=== PATIENT | female | born 1985 | race Caucasian/White ===

== ENCOUNTER 2017-04-23 12:41 | Emergency (ER) | payer BC ==
[2017-04-23] MEDS ORDERED: ONDANSETRON 4 MG ODT TABLET SL ONE (13:07)
[2017-04-23] MEDS ORDERED: IBUPROFEN 600 MG TABLET PO ONE (13:07)
--- NOTE | 2017-04-23 13:07 | Emergency Department Record ---
History of Present Illness - General Chief Complaint: Abdominal Pain Stated Complaint: ABDOMINAL PAIN,VOMITTING Time Seen by Provider: 04/23/17 12:53 Source: Patient Mode of Arrival: Ambulatory Limitations: No limitations - History of Present Illness Initial Comments: 32 yo female presents with UTI like symptoms since last . She has had frequency and discomfort with urination. She tried to increase her fluids. She has continued to have the symptoms but now with some discomfort in her back as well. No fever. She has had some nausea. No history of renal stones. Early this morning she had some nausea and vomited twice. Starting at 5pm yesterday she had some LLQ ache as well. No fever. No hematuria. Her OB is Dr Dodd. Onset/Timin -: Days(s) (5) Location: LUQ, LLQ Radiation: Back Severity: Moderate Quality: Dull, Sharp Consistency: Constant, Intermittent Improves With: Nothing Worsens With: Nothing Associated Symptoms: Denies other symptoms - Related Data Patient : No Previous Rx's Medication Instructions Recorded Cephalexin [Keflex] 500 mg PO QID #40 cap 04/23/17 Hydrocodone/Acetaminophen [[place] 1 each PO Q8H #10 tablet 04/23/17 5-325 Tablet] Metronidazole [Flagyl] 500 mg PO BID #14 tablet 04/23/17 Allergies Allergy/AdvReac Type Severity Reaction Status Date / Time hydrogen peroxide Allergy Severe BLISTERS Unverified 08/05/15 14:46 adhesive Allergy Mild HIVES Unverified 08/05/15 14:46 Travel Screening - Travel/Exposure Within Last 30 Days Have you traveled within the last 30 days?: No Review of Systems Constitutional: Denies: Chills, Fever, Malaise, Weakness Eyes: Denies: Eye discharge, Eye pain, Photophobia, Vision change ENT: Denies: Congestion, Throat pain Respiratory: Denies: Cough, Dyspnea, Hemoptysis, Stridor, Wheezes Cardiovascular: Denies: Chest pain, Palpitations, Syncope Endocrine: Denies: Fatigue, Polydipsia, Polyuria Gastrointestinal: Reports: As per HPI, Abdominal pain, Nausea. Denies: Diarrhea Genitourinary: Reports: Dysuria, Frequency. Denies: Hematuria Musculoskeletal: Reports: As per HPI, Back pain. Denies: Arthralgia Skin: Denies: Bruising, Change in color, Rash Neurological: Denies: Headache, Numbness, Vertigo, Weakness Psychiatric: Denies: Anxiety Hematological/Lymphatic: Denies: Blood Clots, Easy bleeding, Easy bruising, Swollen glands Past Medical History - SOCIAL HISTORY Smoking Status: Current every day smoker Alcohol Use: Occasional Drug Use: None - RESPIRATORY Hx Respiratory Disorders: No - CARDIOVASCULAR Hx Cardio Disorders: No - NEURO Hx Neuro Disorders: No - GI Hx GI Disorders: No - Hx Genitourinary Disorders: No - ENDOCRINE Hx Endocrine Disorders: No - MUSCULOSKELETAL Hx Musculoskeletal Disorders: No - PSYCH Hx Psych Problems: No Comment:: ADHD - HEMATOLOGY/ONCOLOGY Hx Hematology/Oncology Disorders: No Family Medical History Any Significant Family History?: No Physical Exam - General General Appearance: Alert, Oriented x3, Cooperative, No acute distress Limitations: No limitations - Head Head exam: Atraumatic, Normal inspection - Eye Eye exam: Normal appearance, PERRL. negative: Conjunctival injection, Scleral icterus - ENT ENT exam: Normal exam, Mucous membranes moist Ear exam: Normal external inspection Nasal Exam: Normal inspection Mouth exam: Normal external inspection - Neck Neck exam: Normal inspection, Full ROM. negative: Tenderness - Respiratory Respiratory exam: Normal lung sounds bilaterally. negative: Respiratory distress - Cardiovascular Cardiovascular Exam: Regular rate, Normal rhythm, Normal heart sounds - GI/Abdominal GI/Abdominal exam: Soft - Rectal Rectal exam: Deferred - exam: Adnexal tenderness (L), Normal external exam, Vaginal bleeding. negative: Abnormal external exam, Adnexal mass (L), Adnexal mass (R), Adnexal tenderness (R), Cervical discharge, cervical motion tenderness, Enlarged uterus , Normal speculum exam, Vaginal discharge, Vaginal erythema - Extremities Extremities exam: Normal inspection, Full ROM, Normal capillary refill. negative: Tenderness - Back Back exam: Reports: Normal inspection, Full ROM. Denies: Muscle spasm, Rash noted, Tenderness - Neurological Neurological exam: Alert, Normal gait, Oriented X3 - Psychiatric Psychiatric exam: Normal affect, Normal mood - Skin Skin exam: Dry, Intact, Normal color, Warm Course Vital Signs 04/23/17 12:49 Temperature 98.1 F Pulse Rate 83 Respiratory 20 Rate Blood Pressure 128/82 Pulse Ox 98 - Reevaluation(s) Reevaluation #1: Vitals reviewed No acute changes The patient requests only a UA done at this time declining pelvic or labs/US. 04/23/17 13:09 04/23/17 13:54 The prelim UA is LE, and N positive. HCG is negative 04/23/17 13:57 The micro with WBC's and 0-2 blood with bacteria 04/23/17 14:13 The patient is now in agreement for labs, pelvic and US She was informed of delay as the US is in the OR currently., 04/23/17 16:21 The Wet Prep was positive for clue cells. Flagyl will be added. No acute changes on the CBC or CMP US pending 04/23/17 16:24 The prelim US was reviewed. Small bilateral ovarian simple cysts. The patient does not have a fever, the WBC count is negative She will be given antibiotics for the UTI and the bacterial vaginosis She will be asked to return for a recheck in the next 1 day if not improving Medical Decision Making - Lab Data Result diagrams: 04/23/17 14:35 04/23/17 14:35 Disposition Disposition: Discharge Clinical Impression: Bacterial vaginosis, Ovarian cyst Urinary tract infection Qualifiers: Urinary tract infection type: acute cystitis Hematuria presence: without hematuria Qualified Code(s): N30.00 - Acute cystitis without hematuria Disposition: Home, Self-Care Condition: (1) Good Instructions: Urinary Tract Infection in Women (ED), Bacterial Vaginosis (ED), Ovarian Cyst (ED) Additional Instructions: Call your doctor for close follow up this week Return to the ER if worse, fever, vomiting or concerns Return in the next 24 hours if not improving Prescriptions: Cephalexin [Keflex] 500 mg PO QID #40 cap Hydrocodone/Acetaminophen [[place] 5-325 Tablet] 1 each PO Q8H #10 tablet Metronidazole [Flagyl] 500 mg PO BID #14 tablet Forms: Patient Portal Access Quality - Quality Measures Quality Measures: N/A - Blood Pressure Screening Does Patient Have Any of the Following: No Blood Pressure Classification: Pre-Hypertensive BP Reading Systolic Measurement: 128 Diastolic Measurement: 82 Screening for High Blood Pressure: < Pre-Hypertensive BP, F/U Documented > [ [id number]] Pre-Hypertensive Follow-up Interventions: Referral to alternative/primary care provider.
[2017-04-23 13:37] LABS: HCG,QUALITATIVE URINE NEGATIVE (NEGATIVE)
[2017-04-23 13:39] LABS: URINE APPEARANCE SL CLOUDY; URINE BILIRUBIN NEGATIVE (NEGATIVE); URINE BLOOD LARGE (NEGATIVE); URINE COLOR YELLOW; URINE GLUCOSE (UA) NEGATIVE (NEGATIVE); URINE KETONE NEGATIVE (NEGATIVE); URINE LEUKOCYTE ESTERASE LARGE (NEGATIVE); URINE NITRITE POSITIVE (NEGATIVE); URINE PROTEIN NEGATIVE (NEGATIVE); URINE UROBILINOGEN 0.2 E.U./dL (0.20 - 1.00)
[2017-04-23 13:54] LABS: URINE RBC 0 - 2 (NONE SEEN); URINE SQUAMOUS EPITHELIAL CELL 0 - 2 /hpf; URINE WBC 21 - 35 (0-2/hpf)
[2017-04-23] MEDS ORDERED: NITROFURANTOIN MONO 100 MG CAPSULE PO ONE (13:54)
[2017-04-23 13:55] LABS: URINE BACTERIA 1+
[2017-04-23] MEDS ORDERED: 0.9 % SODIUM CHLORIDE 1,000 ML BAG IV ONE (14:12)
[2017-04-23] MEDS ORDERED: ACETAMINOPHEN 1,000 MG/100 ML BTL IVPB ONE (14:12)
[2017-04-23] MEDS ORDERED: CEFTRIAXONE SODIUM 1 GM in 0.9 % SODIUM CHLORIDE 100ML 100 ML IVPB ONE (14:14)
[2017-04-23 15:18] LABS: BASO % 0.1 % (0-6); EOS % 1.5 % (0-6); GRAN % 71.5 % (47-80); HEMOGLOBIN 13.7 gm/dl (11.6-16.0); LYMPH % 16.8 % (16-45); MEAN CELL VOLUME 98.3 fl (81-97); MEAN CORPUSCULAR HEMOGLOBIN 32.9 pg (27-33); MEAN CORPUSCULAR HGB CONC 33.4 g/dl (32-36); MEAN PLATELET VOLUME 10.5 fl (7.4-10.4); MONO % 10.1 % (0-9); PLATELET COUNT 257 K/uL (130-400); RED BLOOD COUNT 4.17 M/uL (3.80-5.40); RED CELL DISTRIBUTION WIDTH 12.4 % (11.5-14.5); WHITE BLOOD COUNT W/O DIFF 7.5 K/uL (4.2-12.2)
[2017-04-23 15:41] LABS: ALB/GLOB RATIO 1.7 (1.1-1.8); ALBUMIN 4.2 g/dL (4.0-5.0); ALKALINE PHOSPHATASE 70 U/L (35-104); ALT/SGPT 9 U/L (<33); AST/SGOT 11 U/L (10.0-35.0); BLOOD UREA NITROGEN 8 mg/dL (6-20); CREATININE 0.5 mg/dL (0.5-0.9); EST GLOMERULAR FILTRATION RATE > 60 mL/min; GLUCOSE,RANDOM 80 mg/dL (74-109); TOTAL PROTEIN 6.7 g/dL (6.6-8.7)
[2017-04-23] MEDS ORDERED: METRONIDAZOLE 250 MG TABLET PO ONE (16:20)
--- NOTE | 2017-04-24 11:09 | ULTRASOUND REPORT ---
EXAM: ULTRASOUND OF THE PELVIS WITH TRANSVAGINAL IMAGING HISTORY: LEFT LOWER QUADRANT PAIN. TECHNIQUE: Transabdominal ultrasound examination of the pelvis was performed. Transvaginal scanning was also performed for further evaluation of the uterus and adnexa. Comparison: None. FINDINGS: TRANSABDOMINAL PELVIC ULTRASOUND: The uterus is mildly retroflexed and retroverted. It measures 8.7 x 3.9 x 6.9 cm. No definite myometrial mass is identified. The endometrium is not optimally visualized though its thickness is estimated at 7 mm. The right ovary is visualized and measures 5.0 x 4.6 x 4.1 cm. There is a dominant cystic structure within the right ovary measuring 3.5 x 2.9 x 4.5 cm. The left ovary is visualized and normal in size measuring 2.3 x 3.3 x 3.3 cm. Blood flow is demonstrated in each ovary with color Doppler and Duplex Doppler evaluation. Spectral analysis demonstrates venous waveforms in each ovary and an arterial waveform in the right ovary. No free fluid in the cul-de-sac. TRANSVAGINAL PELVIC ULTRASOUND: The uterus is retroflexed and likely retroverted. It measures 7.1 x 4.2 x 5.5 cm. No myometrial mass is identified. The endometrium thickness is normal measuring 5 mm. There may be a couple tiny calcifications in the region fo the endometrium. The right ovary is visualized and measures 4.6 x 5.3 x 4.0 cm. A simple appearing cyst arises within the right ovary measuring 3.3 x 3.5 x 3.3 cm. The left ovary is visualized and measures 5.1 x 1.9 x 2.5 cm. A simple cyst arises within the left ovary measuring 3.0 x 2.0 x 1.7 cm. Blood flow is demonstrated in each ovary with color Doppler examination. Spectral analysis demonstrates an arterial waveform in the right ovary and an arterial waveform in the left ovary. No free fluid in the cul-de-sac. IMPRESSION: 1. RETROFLEXED UTERUS. 2. SINGLE APPEARING CYSTIC STRUCTURES WITHIN EACH OVARY WITH THAT ON THE RIGHT MEASURING 3.5 CM IN DIAMETER AND THAT ON THE LEFT MEASURING 3.0 CM IN DIAMETER. THESE ARE LIKELY FUNCTIONAL OVARIAN CYSTS. SHORT TERM FOLLOW-UP EXAMINATION IN SIX TO EIGHT WEEKS IS RECOMMENDED TO CONFIRM REGRESSION. JOB NUMBER: [id number] [facility]
== END 2017-04-23 17:03 | disposition home or self-care (01) ==
LOC: ER 12:41
DX: N30.01 Acute cystitis with hematuria (principal); N76.0 Acute vaginitis; N83.291 Other ovarian cyst, right side; N83.292 Other ovarian cyst, left side; R11.0 Nausea
CPT/HCPCS: 99284 ×2; 96374; 96375; 85025; 80053; 81001; 81025; 76856; 76830; Q0111; 87210; J7030